=== PATIENT | male | born 2000 | race Two or more races ===

== ENCOUNTER 2021-06-17 06:08 | Observation (INO) ==
[2021-06-17] MEDS ORDERED: SODIUM CHLORIDE 0.9% 1000ML 1,000 ML IV ONE (06:29)
[2021-06-17] MEDS ORDERED: ONDANSETRON INJ 2 MG/ML 2 ML VIAL IV STA (06:29)
[2021-06-17 06:55] LABS: Appearance Urine Clear (Clear); Bilirubin Urine Negative (Negative); Blood Urine Negative (Negative); Color Urine Yellow; Glucose Urine UA Negative (Negative); Hematocrit (blood only) 43.3 % (42-52); Hemoglobin 14.6 g/dL (14.0-18.0); Ketones Urine Negative (Negative); Leukocyte Esterase Urine Negative (Negative); Mean Corpuscular Hemoglobin 31.7 pg (25-34); Mean Corpuscular Hgb Conc 33.7 g/dL (32-36); Mean Corpuscular Volume 93.9 fL (80-100); Mean Platelet Volume 10.4 fL (7.4-10.4); Nitrite Urine Negative (Negative); Platelet Count 308 K/uL (130-400); Protein Urine Negative (Negative); RDW Coefficient of Variation 12.2 % (11.5-14.5); RDW Standard Deviation 41.2 fL (36.4-46.3); Red Blood Count 4.61 M/uL (4.7-6.1); Specific Gravity Urine 1.007 (1.000-1.030); Urobilinogen Urine Negative (Negative)
[2021-06-17 07:12] LABS: Albumin Globulin Ratio 1.6 (0.9-2); Albumin Level 4.4 gm/dl (3.4-5.0); BUN Creatinine Ratio 12.9 (10-20); Bilirubin,Total 0.5 mg/dl (0.2-1.0); Calcium 9.4 mg/dl (8.5-10.1); Creatinine Clr Calc Pharmacy 129.6 ml/min; Est GFR (African American) 145.4 ml/min; Est GFR (Non-African American) 125.4 ml/min; Globulin 2.8 gm/dl (2.5-4.0); Potassium 3.9 mmol/L (3.5-5.1); Total Protein 7.2 gm/dl (6.0-8.3)
--- NOTE | 2021-06-17 07:13 | Emergency Department Note ---
Impression & Plan RLQ abdominal pain, Acute appendicitis ED Provider Note NAME: DINORAH GELLER AGE: 20 SEX: M : 2000 ARRIVES VIA: Walk-In INFORMANT: [Patient] ED PROVIDER(S): [Randall Mukherjee MD] CHIEF COMPLAINT: Abdominal pain HISTORY OF PRESENT ILLNESS: The patient is a 20-year-old male who was here a few days ago and diagnosed with appendicitis by CT imaging. The appendix was 9 mm. The patient opted for antibiotic therapy as he felt better while here in the ED. He was given Augmentin. The patient presents back today with continued pain although the pain is better than it was before. His pain is now about a 4 out of 10 and it is in the right lower quadrant. No pain radiation. The pain is worse with palpation of the abdomen. No fever, no nausea or vomiting, no urinary complaints or diarrhea. He is wondering if he needs his appendix removed. REVIEW OF SYSTEMS: See HPI for pertinent positives and negatives. A total of ten systems were reviewed and were otherwise negative. PMHx/PSHx: See Below SOCIAL HISTORY: See Below. PHYSICAL EXAM: GENERAL: Patient is in no acute distress. HEENT: No acute trauma, normocephalic atraumatic, mucous membranes moist, no nasal congestion, no scleral icterus. NECK: No stridor, no adenopathy, no meningismus, trachea is midline. LUNGS: Clear to auscultation bilaterally, no wheeze, no rhonchi, breath sounds equal. HEART: Without murmurs gallops or rubs, regular rate and rhythm. ABDOMEN: Soft, moderately tender in the right lower quadrant, bowel sounds positive, no hernias, no peritonitis. EXTREMITIES: No cyanosis or edema, full range of motion of all the joints without pain or difficulty, no signs for acute trauma. NEUROLOGIC: Oriented x 3, no acute motor or sensory deficits, no focal weakness. SKIN: No rash, no jaundice, no diaphoresis. DIFFERENTIAL DIAGNOSIS: Appendicitis, ruptured appendix, testicular torsion, diverticulitis, UTI, obstruction, mesenteric ischemia, aortic pathology, inflammatory bowel disease, renal colic, PUD, pancreatitis, biliary pathology, hernia, volvulus, constipation, as well as other pathologies. EMERGENCY DEPARTMENT COURSE/PROCEDURES: MEDICAL DECISION MAKING: There is no leukocytosis. The white count is improved from when he was here on the , 6 days ago. There is a normal hemoglobin and platelet count. No significant electrolyte abnormality, no renal failure. No worrisome liver enzyme elevation. Urinalysis does not show infection. COVID testing is negative. Abdominal and pelvis CT appears to show improvement in the appendicitis. The appendix appeared normal on noncontrast CT. On my exam, the patient was not febrile or toxic. He was tender in the right lower quadrant. I did speak with general surgery. They saw the patient here in the ED and have decided to hospitalize the patient for IV antibiotic therapy. The patient may require an official appendectomy although, things do appear to be improved on oral antibiotics. The patient is aware of his findings, I did speak with case management. General surgery is doing the primary admission. Past Med/Surg History Medical History Asthma Surgical History No pertinent past surgical history Social History Smoking Status: Never smoker Hx Alcohol Use: No Hx Substance Use: No Preferred Language: Peruvian current occupational status: student current occupation: [employer] student Feels Safe at Home: Yes Allergies Allergies Allergy/AdvReac Type Severity Reaction Status Date / Time No Known Allergies Allergy Unverified 06/17/21 07:30 Home Meds Previous Rx's Medication Instructions Recorded amoxicillin 875 mg-potassium 1 tab PO BID 10 Days #20 tab 06/12/21 clavulanate 125 mg tablet Results & Data (ED) Vital Signs Vital Signs - 24 hr 06/17/21 06:13 06/17/21 07:00 06/17/21 07:02 Temperature 36.4 C L Temperature Source Oral Pulse Rate 69 54 L Pulse Rate from SpO2 Sensor 55 L Respiratory Rate 18 18 Blood Pressure 129/77 121/77 Blood Pressure Mean 94 91 Pulse Oximetry 98 97 Oxygen Delivery Method Room Air Sepsis Recent Fever Within 48 Hours No Sepsis New/Unexplained Change in Mental Status N/A Sepsis Action Taken by Nursing No Action Required Home Medications Current Medication List: was personally reviewed by me Laboratory Data Attestation: I reviewed the patient's lab results. Result diagrams: 06/17/21 06:29 06/17/21 06:29 Lab Results 06/17/21 06/17/21 06/17/21 Range/Units 06:29 06:29 06:29 WBC 7.20 (4.8-10.8) K/uL RBC 4.61 L (4.7-6.1) M/uL Hgb 14.6 (14.0-18.0) g/dL Hct 43.3 (42-52) % MCV 93.9 (80-100) fL MCH 31.7 (25-34) pg MCHC 33.7 (32-36) g/dL RDW Std Deviation 41.2 (36.4-46.3) fL RDW Coeff of Prashant 12.2 (11.5-14.5) % Plt Count 308 (130-400) K/uL MPV 10.4 (7.4-10.4) fL Immature Gran % (Auto) 0.1 % Neut % (Auto) 37.8 % Lymph % (Auto) 51.5 % [place] % (Auto) 6.3 % Eos % (Auto) 4.0 % Baso % (Auto) 0.3 % Neut # (Auto) 2.72 (1.4-6.5) K/uL Lymph # (Auto) 3.71 H (1.2-3.4) K/uL [place] # (Auto) 0.45 (0.11-0.59) K/uL Eos # (Auto) 0.29 (0-0.5) K/uL Baso # (Auto) 0.02 (0-0.2) K/uL Immature Gran # (Auto) 0.01 (0.00-0.02) K/uL Sodium 138 (136-145) mmol/L Potassium 3.9 (3.5-5.1) mmol/L Chloride 104 (98-107) mmol/L Carbon Dioxide 29 (21-32) mmol/L Anion Gap 5 (3-11) BUN 11 (6-23) mg/dl Creatinine 0.85 (0.6-1.4) mg/dl Est Cr Clr Drug Dosing 129.6 ml/min Est GFR ( Amer) 145.4 ml/min Est GFR (Non-Af Amer) 125.4 ml/min BUN/Creatinine Ratio 12.9 (10-20) Glucose 78 (70-99(Fasting)) mg/dl Calcium 9.4 (8.5-10.1) mg/dl Total Bilirubin 0.5 (0.2-1.0) mg/dl AST 17 (13-39) U/L ALT 14 (7-52) U/L Alkaline Phosphatase 55 (34-104) U/L Total Protein 7.2 (6.0-8.3) gm/dl Albumin 4.4 (3.4-5.0) gm/dl Globulin 2.8 (2.5-4.0) gm/dl Albumin/Globulin Ratio 1.6 (0.9-2) Urine Color Yellow Urine Appearance Clear (Clear) Urine pH 6.0 (4.5-7.5) Ur Specific Maybell 1.007 (1.000-1.030) Urine Protein Negative (Negative) Urine Glucose (UA) Negative (Negative) Urine Ketones Negative (Negative) Urine Blood Negative (Negative) Urine Nitrite Negative (Negative) Urine Bilirubin Negative (Negative) Urine Urobilinogen Negative (Negative) Ur Leukocyte Esterase Negative (Negative) SARS-CoV-2, RNA, NAAT (NEGATIVE) 06/17/21 Range/Units 07:17 WBC (4.8-10.8) K/uL RBC (4.7-6.1) M/uL Hgb (14.0-18.0) g/dL Hct (42-52) % MCV (80-100) fL MCH (25-34) pg MCHC (32-36) g/dL RDW Std Deviation (36.4-46.3) fL RDW Coeff of Prashant (11.5-14.5) % Plt Count (130-400) K/uL MPV (7.4-10.4) fL Immature Gran % (Auto) % Neut % (Auto) % Lymph % (Auto) % [place] % (Auto) % Eos % (Auto) % Baso % (Auto) % Neut # (Auto) (1.4-6.5) K/uL Lymph # (Auto) (1.2-3.4) K/uL [place] # (Auto) (0.11-0.59) K/uL Eos # (Auto) (0-0.5) K/uL Baso # (Auto) (0-0.2) K/uL Immature Gran # (Auto) (0.00-0.02) K/uL Sodium (136-145) mmol/L Potassium (3.5-5.1) mmol/L Chloride (98-107) mmol/L Carbon Dioxide (21-32) mmol/L Anion Gap (3-11) BUN (6-23) mg/dl Creatinine (0.6-1.4) mg/dl Est Cr Clr Drug Dosing ml/min Est GFR ( Amer) ml/min Est GFR (Non-Af Amer) ml/min BUN/Creatinine Ratio (10-20) Glucose (70-99(Fasting)) mg/dl Calcium (8.5-10.1) mg/dl Total Bilirubin (0.2-1.0) mg/dl AST (13-39) U/L ALT (7-52) U/L Alkaline Phosphatase (34-104) U/L Total Protein (6.0-8.3) gm/dl Albumin (3.4-5.0) gm/dl Globulin (2.5-4.0) gm/dl Albumin/Globulin Ratio (0.9-2) Urine Color Urine Appearance (Clear) Urine pH (4.5-7.5) Ur Specific Maybell (1.000-1.030) Urine Protein (Negative) Urine Glucose (UA) (Negative) Urine Ketones (Negative) Urine Blood (Negative) Urine Nitrite (Negative) Urine Bilirubin (Negative) Urine Urobilinogen (Negative) Ur Leukocyte Esterase (Negative) SARS-CoV-2, RNA, NAAT NEGATIVE (NEGATIVE) Administered Medications Discontinued Medications Sodium Chloride (Nss 1000ml) 1,000 mls @ 999 mls/hr IV .Q1H1M ONE Stop: 06/17/21 07:29 Last Infusion: 06/17/21 07:47 Dose: 0 mls/hr Documented by: [id number] Admin: 06/17/21 06:39 Dose: 999 mls/hr Documented by: [id number] Ondansetron HCl (Ondansetron Inj 2 Mg/Ml 2 Ml Vial) 4 mg IV NOW STA Stop: 06/17/21 06:30 Last Admin: 06/17/21 06:39 Dose: 4 mg Documented by: [id number] Imaging Data Radiologist's Impression: Abdomen/Pelvis CT 06/17/21 06:[address] WITHOUT CONTRAST CT DOSE: 288.76 mGy.cm HISTORY: Right lower quadrant pain. appendicitis, returns TECHNIQUE: Multiaxial CT images of the abdomen and pelvis were performed without contrast. A dose lowering technique was utilized adhering to the principles of ALARA. COMPARISON STUDY: Abdomen and pelvis CT 06/11/2021. FINDINGS: The lung bases are clear. No fractures within the visualized osseous structures. The unenhanced liver, gallbladder, spleen, adrenal glands, pancreas, and kidneys are unremarkable. No hydronephrosis. No retroperitoneal lymphadenopathy. Normal caliber abdominal aorta. The bladder appears unremarkable. No pelvic free fluid. Suboptimal evaluation for bowel pathology due to the lack of intravenous and oral contrast. Specifically, the appendix is suboptimally assessed due to the lack of contrast. Moderate well-formed stool within the colon. The appendix is likely visualized within the right lower quadrant on images 294 through 305. This appears to be normal in caliber measuring up to 6 mm. No periappendiceal fat stranding at this time. Therefore, no definite evidence for acute appendicitis. IMPRESSION: 1. Difficult study to evaluate the appendix due to the lack of intravenous and oral contrast. However, the appendix appears to be normal in caliber and there is no evidence for periappendiceal fat stranding to suggest acute appendicitis. If the patient's symptoms continue to progress then consider repeat abdomen and pelvis CT with intravenous and oral contrast. 2. No definite bowel wall thickening or obstruction. 3. No hydronephrosis. ACT 112: Negative or not required by law. Electronically signed by: Alex Meier M.D. 06/17/2021 8:00 AM Discharge Plan Visit Data Chief Complaint: Flank Pain Stated Complaint: RIGHT SIDED PAIN DX APPENDICITIS ED Provider: Randall Mukherjee Discharge Problem: RLQ abdominal pain, Acute appendicitis Patient Disposition: Admitted As Inpatient Condition: Good Forms Stand Alone Forms: [employer] Prescriptions Prescriptions: No Action amoxicillin-pot clavulanate 875-125 mg tablet 1 tab PO BID 10 Days Qty: 20 RF: 0 Referrals Referrals: PCP,NO [Primary Care Provider] -
[2021-06-17 07:36] LABS: Basophils # (auto) 0.02 K/uL (0-0.2); Basophils % (auto) 0.3 %; Eosinophils # (auto) 0.29 K/uL (0-0.5); Immature Granulocytes # (auto) 0.01 K/uL (0.00-0.02); Immature Granulocytes % (auto) 0.1 %; Lymphocytes # (auto) 3.71 K/uL (1.2-3.4); Lymphocytes % (auto) 51.5 %; Monocytes # (auto) 0.45 K/uL (0.11-0.59); Monocytes % (auto) 6.3 %; Neutrophils # (auto) 2.72 K/uL (1.4-6.5); Neutrophils % (auto) 37.8 %
--- NOTE | 2021-06-17 07:55 | History & Physical Report ---
Date of Service June 17, 2021 Assessment & Plan (1) Acute appendicitis: Plan: Patient with persistent recurrent right lower quadrant pain He has been treated with oral antibiotics for acute appendicitis He will be admitted to the hospital for IV antibiotics We will check a repeat CAT scan to rule out significant abscess After discussion with the patient regarding future appendectomy At the end of school this spring he wishes to return to [facility] to be followed up History of Present Illness Primary Care Provider: NO PCP 20-year-old male who presents to the emergency room with persistent right lower quadrant pain On 06/11/2021 the patient was in the emergency room and had a CAT scan for right lower quadrant pain It showed early appendicitis he was treated with antibiotics He has not had any significant nausea or vomiting or fever-just intermittent right lower quadrant pain Allergies Allergy/AdvReac Type Severity Reaction Status Date / Time No Known Allergies Allergy Unverified 06/17/21 07:30 Home Medications Medication Instructions Recorded Confirmed Type amoxicillin 875 mg-potassium 1 tab PO BID 10 Days #20 tab 06/12/21 06/17/21 Rx clavulanate 125 mg tablet Past Med/Surg History Medical History Asthma Surgical History No pertinent past surgical history Social History Smoking Status: Never smoker Hx Alcohol Use: No Hx Substance Use: No Preferred Language: Prydeinig current occupational status: student current occupation: [employer] student Feels Safe at Home: Yes Review of Systems All systems reviewed & are unremarkable except as noted in HPI & below Physical Exam Physical Exam: Patient is awake and alert Vital signs are stable he is afebrile His abdomen is flat and soft he has very minimal tenderness to deep palpation in the right lower quadrant Constitutional: well developed and well nourished; no acute distress Eyes: + anicteric sclerae Respiratory: normal respiratory effort; no respiratory distress Cardiovascular: Rate/Rhythm: regular rate Gastrointestinal (Abdomen): Percussion/Palpation: abdomen soft Musculoskeletal: Gait: normal gait Skin: no rashes, warm and dry Neurologic: awake Psychiatric: Orientation: alert Results & Data ([facility]) Vital Signs (Past 12 Hours) Vital Signs Temp Pulse Resp BP Pulse Ox 06/17/21 07:02 54 L 18 121/77 97 06/17/21 06:13 36.4 C L 69 18 129/77 98 Coding Level of Care Code 40903 Initial Inpt Care Lvl 3 Diagnoses Acute appendicitis K35.30 Acute appendicitis type: with localized peritonitis Appendicitis abscess presence: without abscess Appendicitis gangrene presence: without gangrene Appendicitis perforation presence: without perforation (1) Acute appendicitis Acute appendicitis type: with localized peritonitis Appendicitis abscess presence: without abscess Appendicitis gangrene presence: without gangrene Appendicitis perforation presence: without perforation Qualified Code(s): K35.30 - Acute appendicitis with localized peritonitis, without perforation or gangrene
--- NOTE | 2021-06-17 08:01 | CT Scan Report ---
ABDOMEN AND PELVIS CT WITHOUT CONTRAST CT DOSE: 288.76 mGy.cm HISTORY: Right lower quadrant pain. appendicitis, returns TECHNIQUE: Multiaxial CT images of the abdomen and pelvis were performed without contrast. A dose lo wering technique was utilized adhering to the principles of ALARA. COMPARISON STUDY: Abdomen and pelvis CT 06/11/2021. FINDINGS: The lung bases are clear. No fractures within the visualized osseous structures. The unenha nced liver, gallbladder, spleen, adrenal glands, pancreas, and kidneys are unremarkable. No hydroneph rosis. No retroperitoneal lymphadenopathy. Normal caliber abdominal aorta. The bladder appears unrema rkable. No pelvic free fluid. Suboptimal evaluation for bowel pathology due to the lack of intravenou s and oral contrast. Specifically, the appendix is suboptimally assessed due to the lack of contrast. Moderate well-formed stool within the colon. The appendix is likely visualized within the right lowe r quadrant on images 294 through 305. This appears to be normal in caliber measuring up to 6 mm. No p eriappendiceal fat stranding at this time. Therefore, no definite evidence for acute appendicitis. IMPRESSION: 1. Difficult study to evaluate the appendix due to the lack of intravenous and oral contrast. However , the appendix appears to be normal in caliber and there is no evidence for periappendiceal fat stran ding to suggest acute appendicitis. If the patient's symptoms continue to progress then consider repe at abdomen and pelvis CT with intravenous and oral contrast. 2. No definite bowel wall thickening or obstruction. 3. No hydronephrosis. ACT 112: Negative or not required by law. Electronically signed by: Alex Meier M.D. 06/17/2021 8:00 AM
[2021-06-17] MEDS ORDERED: SODIUM CHLORIDE 0.9% 1000ML 1,000 ML IV SCH (08:15)
[2021-06-17] MEDS ORDERED: PROMETHAZINE HCL 12.5 MG in SODIUM CHLORIDE 0.9% 50 ML IV PRN (10:07)
[2021-06-17] MEDS ORDERED: HYDROmorphone INJ 0.5 MG/0.5 ML SYR IV PRN (10:07)
[2021-06-17] MEDS ORDERED: HYDROCODONE/ACETAMOPHEN 5/325MG TAB PO PRN (10:07)
[2021-06-17] MEDS ORDERED: ONDANSETRON INJ 2 MG/ML 2 ML VIAL IV PRN (10:07)
[2021-06-17] MEDS ORDERED: IBUPROFEN 600 MG TAB PO PRN (10:07)
[2021-06-17] MEDS ORDERED: PIPERACILL/TAZOBAC CONSULT ACTIVE PRN (10:07)
[2021-06-17] MEDS: SODIUM CHLORIDE 0.9% 1000ML 1,000 ML IV SCH ×2 (10:40→21:22)
[2021-06-17] MEDS ORDERED: PIPERACILLIN/TAZOBACTAM 3.375 GM in DEXTROSE 5% 100 ML IV ONE (10:45)
[2021-06-17] MEDS: PIPERACILLIN/TAZOBACTAM 3.375 GM in DEXTROSE 5% 100 ML IV SCH ×2 (16:24→23:13)
[2021-06-18] MEDS: PIPERACILLIN/TAZOBACTAM 3.375 GM in DEXTROSE 5% 100 ML IV SCH (09:03)
--- NOTE | 2021-06-19 02:44 | Discharge Summary (DS) ---
DATE OF DISCHARGE: 06/18/2021. DATE OF ADMISSION: 06/17/2021. PRINCIPAL DIAGNOSIS: Acute appendicitis. HISTORY OF PRESENT ILLNESS AND HOSPITAL COURSE: The patient is a 20-year-old male who initially was in the hospital approximately 1 week prior to this with what appeared to be acute appendicitis treate d with oral antibiotics. He was having some recurrent pain and presented to the Emergency Room. The re was some concern that he had ongoing acute appendicitis with possible worsening; therefore, he was brought into the hospital. He did undergo a CAT scan, which showed no worsening, but he was kept on IV antibiotics overnight and is felt stable for discharge home today on oral antibiotics for another 7-10 days, to be followed in the surgical clinic. Also, as a note the patient is going back to [facility] and will likely have his surgery there sometime during the summer. Job ID: [id number]
== END 2021-06-18 10:53 | disposition home or self-care (01) ==
LOC: ED 06:08 → INTOOBSV 07:15 → 3W 07:15
DX: K35.80 Unspecified acute appendicitis